=== PATIENT | male | born 1930 | race Caucasian/White ===

== ENCOUNTER 2016-04-14 04:59 | Inpatient (IN) | payer MEDICARE, OTHER ==
[~2016-04-14] VITALS: Ht 185.4 cm; Wt 85.9 kg
[2016-04-14 06:34] LABS: BASOPHILS 0.1 % (0.0-2.0); EOSINOPHILS 0.8 % (0-7); HEMATOCRIT 40.4 % (42.0-54.0); HEMOGLOBIN 14.5 g/dL (13.5-17.5); IMMATURE GRANULOCYTES 0.3 % (0-5); LYMPHOCYTES 29.5 % (15-50); MCH 33.9 pg (26.0-34.0); MCHC 35.9 g/dL (31.0-37.0); MCV 94.4 fL (80.0-100.0); MEAN PLATELET VOLUME 9.9 fL (7.4-10.4); MONOCYTES 14.7 % (2-11); NEUTROPHILS 54.6 % (40-80); PLATELET COUNT 113 10x3/uL (130-400); RBC 4.28 10x6/uL (4.20-6.10); RDW 13.6 % (11.5-14.5); WBC 7.2 10x3/uL (4.8-10.8)
[2016-04-14 06:46] LABS: ALBUMIN 3.4 g/dL (3.4-5.0); ALKALINE PHOSPHATASE 85 U/L (46-116); ALT (SGPT) 26 U/L (10-68); BILIRUBIN - TOTAL 1.21 mg/dL (0.2-1.3); CALC OSMOLALITY 277 mosm/kg (275-300); CALCIUM 8.7 mg/dL (8.5-10.1); CARBON DIOXIDE 30.6 mmol/L (21.0-32.0); CHLORIDE - SERUM 101 mmol/L (98-107); GLUCOSE 124 mg/dL (74-106); POTASSIUM - SERUM 3.1 mmol/L (3.5-5.1); PROTEIN - SERUM 7.1 g/dL (6.4-8.2); SODIUM 139 mmol/L (136-145); UREA NITROGEN 10 mg/dL (7-18); eGFR NON AFRICAN AMERICAN 75 mL/min (90-120)
[2016-04-14 06:56] LABS: AMYLASE - SERUM 40 U/L (25-115); LIPASE 72 U/L (73-393); MAGNESIUM - SERUM 2.4 mg/dL (1.8-2.4); PHOSPHOROUS 2.8 mg/dL (2.5-4.9); PRO BNP 2685 pg/mL (0-450); TROPONIN-I 0.034 ng/mL (0.000-0.060)
[2016-04-14] MEDS ORDERED: SINEMET 25-1001 EACH PO (08:18)
[2016-04-14] MEDS ORDERED: COREG6.25 MG PO (08:20)
[2016-04-14] MEDS ORDERED: SYNTHROID150 MCG PO (08:20)
[2016-04-14] MEDS ORDERED: PRINIVIL10 MG PO (08:21)
[2016-04-14] MEDS ORDERED: NORVASC10 MG PO (08:21)
[2016-04-14] MEDS ORDERED: PLAVIX75 MG PO (08:21)
[2016-04-14] MEDS ORDERED: CYTOTEC100 MCG PO (08:22)
[2016-04-14] MEDS ORDERED: CALCIUM 500 +1 EAC3 PO (08:23)
[2016-04-14] MEDS ORDERED: COLACE100 MG PO (08:23)
[2016-04-14] MEDS ORDERED: HEALTHYLAX17 GM PO (08:23)
[2016-04-14] MEDS ORDERED: EFFER-K 25 MEQ25 MEQ PO (08:24)
--- NOTE | 2016-04-14 08:41 | NUR ---
PT REC'D TO ROOM FROM ER, VIA WC, ACCOMPANIED BY HOSPITAL STAFF. ABLE TO AMBULATE WITH MINIMAL ASSISTANCE FROM WC TO BED. AAOX4. 2L O2 BEING DELIVERED VIA NC. CURRENT O2 SAT 94%. REGULAR HEART RATE AND RHYTHM. L CHEST PM. LUNG SOUNDS CLEAR AND EQUAL BILAT TO UPPER LOBES, FINE CRACKLES NOTED TO LOWER LOBES BILAT. BOWEL SOUNDS ACTIVE X4 QUADRANTS. NO COMPLAINTS OF PAIN. BED LOW, CALL LIGHT IN REACH, DENIES NEEDS, CPOC.
[2016-04-14 09:42] VITALS: BP 128/72; BMI 27.1
[2016-04-14 09:44] VITALS: Ht 185.4 cm; Wt 85.9 kg
--- NOTE | 2016-04-14 10:00 | NUR ---
PT RESTING IN BED WITH EYES CLOSED. NO SIGNS OF DISTRESS. RESP EVEN AND UNLABORED. BED LOW, CALL LIGHT IN REACH, CPOC.
[2016-04-14 12:42] VITALS: BP 138/73
--- NOTE | 2016-04-14 14:30 | NUR ---
ONE TIME DOSE OF LASIX ADMINISTERED AT THIS TIME. PROVIDED PT WITH CUP OF SOUP AND CRACKERS. OBTAINED PASSWORD. STATES HE WANTS IT TO JUST BE HIS NAME. BED LOW, CALL LIGHT IN REACH, DENIES NEEDS.
--- NOTE | 2016-04-14 15:39 | NUR ---
TELEMETRY APPLIED BY KAROLINA STEVE. RUNNING 66 PACED, CONTROLLED A-FIB, WITH PAC'S.
--- NOTE | 2016-04-14 16:47 | HP ---
PATIENT: LEONARDA WEATHERS MEDICAL RECORD: [id number] ACCOUNT: [id number] LOCATION:D.MS [facility] : 30 ADMISSION DATE: 04/14/16 HISTORY AND PHYSICAL EXAMINATION HISTORY OF PRESENT ILLNESS: Mr. Weathers is an 86-year-old white male that presents to the Emergency Room with a 1-2 day history of cough, fever, has actually not been feeling well for the last couple of weeks. Dr. Shamar Arroyo is his primary care physician. He saw him, he states that somewhere in the recent past, he was diagnosed with a blood infection, was in the hospital for a day, got some antibiotics and then went home. He just has not quite felt himself the last 2 weeks. He then developed these other problems in the last few days. He has been a smoker in the past, smoked 2-3 packs for about 20 years, quit in the early 70s. His chest x-ray shows a right middle lobe pneumonia. White count is normal. He is admitted at this time for further evaluation and therapy. His BNP was over 2000. PAST MEDICAL HISTORY: Significant for known COPD, coronary artery disease, hypertension, hypothyroidism, Parkinson disease and arrhythmia with pacemaker insertion. ALLERGIES OR INTOLERANCES: None known. HOME MEDICATIONS: Include Coreg 6.25 b.i.d., levothyroxine 150 mcg a day, lisinopril 10 mg once a day, clopidogrel 75 mg once a day, amlodipine 10 mg a day, Cytotec, docusate 100 mg 2 a day, calcium carbonate and vitamin D. FAMILY HISTORY: Noncontributory. SOCIAL HISTORY: The patient is . His in 2008. His daughter lives in [place]. There is a family friend that helps him with a lot of his care around the home. He lives here in the [facility]. REVIEW OF SYSTEMS: Significant for fatigue. No recent changes in weight, no chest pain. He has had some cough, congestion and low-grade temp. Appetite has been off. PHYSICAL EXAMINATION: HEENT: Head is normocephalic, sclerae nonicteric. HEART: Regular. LUNGS: Diffuse crackles on the right. ABDOMEN: Soft. EXTREMITIES: Lower extremities reveal some mild edema. NEUROLOGIC: Without any gross focal deficits. IMPRESSION: 1. Pneumonia. 2. Parkinson disease. 3. Hypertension. 4. Coronary artery disease, stable. 5. Hypothyroidism. PLAN: Admit, IV antibiotics, we will hold IV fluids for now, diurese times 1, pulmonary toilet, PT consult and DVT prophylaxis. See orders for rest of the plan. HISTORY AND PHYSICAL [id number] LEONARDA WEATHERS J TRANSINT:[id number] Voice Confirmation ID: [id number] DOCUMENT ID: [id number] KAMRAN BRYAN DO at 1647 CC: [id number] DICTATION DATE: 04/14/16 1117 SAFETY PHYSICIAN: 04/14/16 1146 ADM IN [facility] [address] [id number]
[2016-04-14 18:39] VITALS: BP 122/68
[2016-04-14 20:49] VITALS: BP 144/86
--- NOTE | 2016-04-14 23:19 | NUR ---
ASSESSED AT THE BEGINNING OF THE SHIFT. PT IS ALERT AND ORIENTED, ABLE TO VERBLIZE NEEDS. HE HAS O2 AT 2 LITERS AND AT THE START OF THE SHIFT WAS GIVEN A SANDWICH TRAY SINCE THE MD HAD NOT GIVEN HIM ANY DIET ORDERS. HE IS A LITTLE [place] BUT DOES WELL. RESPIRATIONS ARE LABORED WITH EXERTION. NO COMPLAINTS HAVE BEEN VOICED AND HE IS RESTING WELL. THE BED IS LOW, RAILS UP X'S 2, AND THE CALL LIGHT IS AT HAND.
[2016-04-15] VITALS: BP 136/77
[2016-04-15 04:00] VITALS: BP 153/91
[2016-04-15 06:08] LABS: BASOPHILS 0 % (0.0-2.0); EOSINOPHILS 0 % (0-7); HEMATOCRIT 38.9 % (42.0-54.0); HEMOGLOBIN 13.9 g/dL (13.5-17.5); IMMATURE GRANULOCYTES 0.2 % (0-5); LYMPHOCYTES 13.9 % (15-50); MCH 33.8 pg (26.0-34.0); MCHC 35.7 g/dL (31.0-37.0); MCV 94.6 fL (80.0-100.0); MEAN PLATELET VOLUME 10.1 fL (7.4-10.4); MONOCYTES 14.1 % (2-11); NEUTROPHILS 71.8 % (40-80); PLATELET COUNT 111 10x3/uL (130-400); RBC 4.11 10x6/uL (4.20-6.10); RDW 13.2 % (11.5-14.5)
[2016-04-15 06:32] LABS: ANION GAP 11.2 mmol/L (8-16); CARBON DIOXIDE 28.5 mmol/L (21.0-32.0); CREATININE - SERUM 1.2 mg/dL (0.6-1.3)
[2016-04-15 06:35] LABS: POTASSIUM - SERUM 3.7 mmol/L (3.5-5.1)
--- NOTE | 2016-04-15 07:15 | NUR ---
PT REC'D FROM [facility]. RESTING IN BED WATCHING TV. AAOX4. NO COMPLAINTS OF PAIN. BED LOW, CALL LIGHT IN REACH, DENIES NEEDS. CPOC.
[2016-04-15 08:07] VITALS: BP 159/101
--- NOTE | 2016-04-15 09:40 | NUR ---
PATIENT ALERT IN BED WATCHING TV. RESPIRATIONS EVEN AND UNLABORED. SIDE RAILS UP X2. BED IN LOW POSITION. CALL LIGHT IN REACH. DENIES NEEDS.
[2016-04-15 12:03] VITALS: BP 158/84
--- NOTE | 2016-04-15 14:55 | NUR ---
ALERTED BY DOWEL MACHINE OPERATOR THAT PT HAD A RUN OF VTACH. PT UP AT BEDSIDE GETTING DRESSED IN STREET CLOTHES. ASKING WHERE HIS DC PAPERS WERE TO SIGN. TOLD PT THAT HE WAS NOT GOING HOME TODAY. THAT THE DOCTOR HAD ALREADY TOLD HIM THAT THIS MORNING. PT THINKS HE HAS BEEN HERE SINCE LAST SATURDAY. EXPLAINED TO PT THAT HE HAS ONLY BEEN HERE FOR ONE DAY. AWARE OF YEAR, PLACE, SITUATION, AND SELF. CURRENT VS 154/87, RESP 22, HR 91, AND 94% O2 ON RA. ASSISTED PT BACK TO BED. DOOR LEFT OPEN AND BED ALARM ON.
--- NOTE | 2016-04-15 15:58 | NUR ---
PT SITTING UP IN CHAIR WATCHING TV, ALERT AND ORIENTED X PERSON, NO CURRENT COMPLAINTS, WILL CONTINUE TO MONITOR
[2016-04-15 16:07] VITALS: BP 143/89
--- NOTE | 2016-04-15 18:55 | NUR ---
PT WALKED BY DESK STATING HE WAS GOING HOME, I REDIRECTED PT BACK TO ROOM, HE'S CURRENTLY READING THE PAPER SITTING IN THE CHAIR, ERIC CHAIR ALARM PLACED, WILL CONTINUE TO MONITOR
--- NOTE | 2016-04-15 20:00 | NUR ---
AWAKE CONFUSED STATES GOING HOME. PT HAS SET OFF CHAIR ALARM SEVERAL TIMES. ATTEMPT TO RE-ORIENT PATIENT. SALINE LOCK PATENT LEFT FOREARM. SITE CLEAR. TELM. SHOWS UNCAF W/BBB WITH HR 114. O2 OFF AT PRESENT NO DISTRESS. PT WANDERS AROUND IN ROOM.
--- NOTE | 2016-04-15 21:30 | NUR ---
MEDS GIVEN PER APR. PT NOW IN BED. BED ALARM ON SR UP X2 CALL LIGHT WITHIN REACH.
[2016-04-15 21:43] VITALS: BP 187/96
--- NOTE | 2016-04-16 00:09 | NUR ---
EYES CLOSED RESPIRATIONS WITH EASE AND UNLABORED.
[2016-04-16 05:00] VITALS: BP 197/95
--- NOTE | 2016-04-16 06:55 | NUR ---
PATIENT STILL TRYING TO WANDER AROUND.
--- NOTE | 2016-04-16 07:15 | NUR ---
REPORT RECEIVED FROM WIPER BLENDER NURSE. CALL LIGHT IN REACH.
[2016-04-16 08:34] VITALS: BP 171/95
--- NOTE | 2016-04-16 08:36 | NUR ---
AM MEDS ADMINISTERED PER MINISTERIO ROSENBERG. CALL LIGHT IN REACH.
[2016-04-16 09:54] LABS: BASOPHILS 0.2 % (0.0-2.0); EOSINOPHILS 0.2 % (0-7); HEMATOCRIT 43.7 % (42.0-54.0); HEMOGLOBIN 15.5 g/dL (13.5-17.5); IMMATURE GRANULOCYTES 0.3 % (0-5); LYMPHOCYTES 12.7 % (15-50); MCH 33.9 pg (26.0-34.0); MCHC 35.5 g/dL (31.0-37.0); MCV 95.6 fL (80.0-100.0); MEAN PLATELET VOLUME 9.7 fL (7.4-10.4); MONOCYTES 11.9 % (2-11); NEUTROPHILS 74.7 % (40-80); PLATELET COUNT 112 10x3/uL (130-400); RBC 4.57 10x6/uL (4.20-6.10); RDW 13.5 % (11.5-14.5); WBC 6.4 10x3/uL (4.8-10.8)
[2016-04-16 10:12] LABS: ALBUMIN 3.2 g/dL (3.4-5.0); ANION GAP 10.9 mmol/L (8-16); BILIRUBIN - TOTAL 0.81 mg/dL (0.2-1.3); CALCIUM 8.7 mg/dL (8.5-10.1); CARBON DIOXIDE 30.4 mmol/L (21.0-32.0); CREATININE - SERUM 1.2 mg/dL (0.6-1.3); POTASSIUM - SERUM 3.3 mmol/L (3.5-5.1); PROTEIN - SERUM 7.2 g/dL (6.4-8.2)
--- NOTE | 2016-04-16 10:37 | NUR ---
PATIENT LYING IN BED DOING A BREATHING TX. IS COMFORTABLE. ADMINISTERED MEDS. INSTUCTED TO CALL IF NEEDED ANYTHING. VERBALIZED UNDERSTANDING. BED LOW, LOCKED, CALL LIGHT IN REACH, BED ALARM IS ON.
[2016-04-16 11:23] VITALS: BP 151/76
--- NOTE | 2016-04-16 12:55 | NUR ---
IN BED EATING LUNCH AT THIS TIME. CALL LIGHT IN REACH.
--- NOTE | 2016-04-16 13:03 | NUR ---
Patient Name: LEONARDA WEATHERS Admission Status: ER Accout number: [id number] Admission Date: 04-14-2016 : 1930 Admission Diagnosis: Attending: MYNOR Current LOS: 2 Anticipated DC Date: 04-17-2016 Planned Disposition: Home Primary Insurance: MEDICARE A & B Discharge Planning Comments: CM MET WITH PATIENT REGARDING D/C NEEDS AND PLANS. PATIENT STATED HE IS INDEPENDENT WITH HIS CARE AND HAS NO DME AT HOME. PATIENT HAS 3 STEPS W/RAILS TO ENTER HOME AND NO STAIRS ONCE INSIDE. PATIENTS PCP IS DR. WAGGONER AND PHARMACY IS [facility]. PATIENT HAS NOT HAD HOME HEALTH AND STATED HE DID NOT NEED IT AND DENIED ANY OTHER NEEDS. CM WILL CONTINUE TO FOLLOW PATIENT WITH D/C NEEDS AND PLANS. PCP DR. WAGGONER [facility]- [phone] GARRETT PEREZ (FRIEND) [phone] Transport Conductor: Soledad Faust Is the patient Alert and Oriented? Yes 0 * How many steps to enter\exit or inside your home? 3 w/rails 0 * PCP DR. WAGGONER 0 * Pharmacy [facility] 0 * Preadmission Environment Home Alone 0 * ADLs Independent 0 * Equipment None 0 * List name and contact numbers for known caregivers / representatives who currently or will assist patient after discharge: GARRETT PEREZ (FRIEND) [phone] 0 * Community resources currently utilized None 0 * Additional services required to return to the preadmission environment? Yes 0 * Can the patient safely return to the preadmission environment? Yes 0 * Has this patient been hospitalized within the prior 30 days at any hospital? No 0 Grand Total: 0
--- NOTE | 2016-04-16 13:15 | NUR ---
WALKING OUT IN HALLS.PT TOOK BACK TO ROOM.BED ALARM ON AND FUNCTIONING
--- NOTE | 2016-04-16 13:46 | NUR ---
PATIENT LYING IN BED COMFORTABLE. IS CONFUSED ON WHERE HE IS. IS RESTING. BED ALARM IS ON. BED LOW, LOCKED, CALL LIGHT IN REACH. INTRUCTED TO CALL IF NEEDED ANYTHING. PATIENT VERBALIZED UNDERSTANDING.
--- NOTE | 2016-04-16 14:45 | NUR ---
CALL EVS TO GET AN SCD MACHINE PLACED ON BED. LADY STATED THAT SHE WOULD HAVE TO LOOK FOR ONE. THE ORDERS ARE IN FOR SCDS TO BE PLACED ON PATIENT.
--- NOTE | 2016-04-16 14:50 | NUR ---
NUTRITION MONITORING & EVAL CHART REVIEWED. PT CURRENTLY SLEEPING. TOLERATING REG DIET, 100% INTAKE. RD FOLLOWING
--- NOTE | 2016-04-16 14:51 | NUR ---
PATIENT LYING IN BED RESTING. INSTRUCTED HIM TO CALL FOR ASSISTANCE IF NEEDED ANYTHING. VERBALIZED UNDERSTANDING. BED LOW, LOCKED, CALL LIGHT IN REACH, BED ALARM ON.
[2016-04-16 15:18] VITALS: BP 147/87
--- NOTE | 2016-04-16 15:35 | NUR ---
PATIENT LYING IN BED RESTING. COLLECTED URINE SAMPLE FROM HIM TO BE SENT TO LAB FOR CONFUSION. HELPED HIM TO THE BATHROOM AND BACK TO BED. BED LOW, LOCKED, CALL LIGHT IN REACH, BED ALARM ON.
--- NOTE | 2016-04-16 15:49 | NUR ---
ASKED KARUNA MADERA IF WE COULD COLLECT A URINE SAMPLE DUE TO CONFUSION TODAY. COLLECTED URINE AND SENT TO THE LAB. PATIENT WAS ALSO PLACED ON ELETROLYTE PROTOCAL TODAY WELL.
[2016-04-16 16:24] LABS: APPEARANCE CLEAR (CLEAR); COLOR YELLOW (YELLOW)
[2016-04-16 16:25] LABS: BACTERIA FEW /hpf (NONE SEEN); BILIRUBIN NEGATIVE (NEGATIVE); EPITHELIAL CELLS 0-5 /hpf (0-5); GLUCOSE NEGATIVE (NEGATIVE); KETONE NEGATIVE (NEGATIVE); LEUKOCYTE ESTERASE NEGATIVE (NEGATIVE); NITRITE NEGATIVE (NEGATIVE); PROTEIN TRACE mg/dL (NEGATIVE); RED CELLS - URINE 0-5 /hpf (0-5); UROBILINOGEN NORMAL (NORMAL); WHITE CELLS - URINE 0-5 /hpf (0-5)
--- NOTE | 2016-04-16 16:59 | NUR ---
PATIENT SITTING UP IN BED EATING DINNER. ADMINISTERED K+ ORDERED. INSTUCTED TO CALL IF NEEDED ANYTHING. VERBALIZED UNDERSTANDING. BED LOCKED, LOW, CALL LIGHT IN REACH, BED ALARM ON.
--- NOTE | 2016-04-16 18:29 | NUR ---
NO CHANGES IN INITIAL ASSESSMENT. CALL LIGHT IN REACH. STILL WAITING ON SCD MACHINE. BED ALARM ON. CALL LIGHT IN REACH. WILL CONTINUE WITH PLAN OF CARE.
--- NOTE | 2016-04-16 18:38 | NUR ---
SPOKE WITH FRONT OFFICE SUPERVISOR ABOUT NEEDING SCD MACHINE SINCE [employer] DID NOT BRING ONE UP.
[2016-04-16 19:00] VITALS: BP 170/101
--- NOTE | 2016-04-16 19:35 | NUR ---
RECIEVED SHIFT REPORT. PT IS LYING IN BED. ALERT AND ORIENTED AND ABLE TO VERBALIZE NEEDS. IV IS PATENT AND SALINE LOC AT THIS TIME. PT IS AMBULATORY BUT WAS INSTRUCTED TO CALL FOR ASSISTANCE WHEN NEEDED. PT DENIES ANY PAIN AT THIS TIME. NO NEEDS ARE VERBALIZED AT THIS TIME. WILL CONTINUE TO MONITOR. SIDE RAILS ARE UP 2. BED IS IN LOWEST POSITION. BED ALARM IS ON FOR SAFETY. CALL LIGHT IS WITHIN REACH.
--- NOTE | 2016-04-16 20:14 | NUR ---
SHIFT ASSESSMENT COMPLETED. NIGHT MEDS GIVEN WITH NO PROBLEMS. NO NEEDS ARE VOICED. WILL MONITOR. SIE RAILS X 2. BED LOW. CALL LIGHT IN REACH. BED ALARM ON.
[2016-04-17] VITALS: BP 165/83
[2016-04-17 04:00] VITALS: BP 184/106
[2016-04-17 05:15] LABS: BASOPHILS 0.2 % (0.0-2.0); EOSINOPHILS 0.4 % (0-7); HEMATOCRIT 42.2 % (42.0-54.0); HEMOGLOBIN 14.7 g/dL (13.5-17.5); IMMATURE GRANULOCYTES 0.2 % (0-5); LYMPHOCYTES 29.5 % (15-50); MCH 33.3 pg (26.0-34.0); MCHC 34.8 g/dL (31.0-37.0); MCV 95.5 fL (80.0-100.0); MEAN PLATELET VOLUME 10.4 fL (7.4-10.4); MONOCYTES 19.2 % (2-11); NEUTROPHILS 50.5 % (40-80); PLATELET COUNT 114 10x3/uL (130-400); RBC 4.42 10x6/uL (4.20-6.10); RDW 13.2 % (11.5-14.5)
[2016-04-17 05:21] LABS: WBC 4.6 10x3/uL (4.8-10.8)
[2016-04-17 05:50] LABS: ALBUMIN 2.9 g/dL (3.4-5.0); BILIRUBIN - TOTAL 0.99 mg/dL (0.2-1.3); CALCIUM 8.5 mg/dL (8.5-10.1); CREATININE - SERUM 1.2 mg/dL (0.6-1.3); PROTEIN - SERUM 6.6 g/dL (6.4-8.2)
--- NOTE | 2016-04-17 07:00 | NUR ---
PATIENT IS AMBULATING IN THE ROOM, PATIENT TURNED OFF HIS BED ALARM. THEN SAT DOWN. I ASKED PATIENT "WHAT IS YOUR NAME AND BIRTHDAY?" PATIENT ANSWERED APPROPRIATLEY. I STATED "WHAT YEAR IS IT?" PATIENT STATED "2016." I STATED "DO YOU KNOW WHERE YOU ARE RIGHT NOW?" PATIENT STATED "NO. I HAVE NO IDEA WHERE I AM. I WAS IN THE HOSPITAL FOR PNEUMONIA, THEN I GOT DISCHARGED AND I DO NOT HAVE A CLUE WHAT HAPPENED OR WHERE I AM. I DO NOT HAVE A HOME ANYMORE. ALMOST ALL MY STUFF IS GONE." I REORIENTED PATIENT. ENCOURAGED PATIENT TO SIT IN THE CHAIR. PUT CHAIR ALARM ON THE CHAIR. EXPLAINED TO PATIENT THAT HE HAS BEEN CONFUSED AND THAT IS WHY THE CHAIR ALARM IS ON. PATIENT VERBALIZED UNDERSTANDING.
--- NOTE | 2016-04-17 07:51 | NUR ---
IV IN LEFT WRIST NOT FLUSHING EASILY. D/C WITH CATH INTACT. STARTED 20G IV TO LEFT FOREARM X'S 1 ATTEMPT.
[2016-04-17 07:53] VITALS: BP 158/90
--- NOTE | 2016-04-17 10:00 | NUR ---
PATIENT IS ORIENTED X'S 4. PATIENT STATED "I AM NOT CONFUSED ANYMORE I REMEMBER EVERYTHING NOW." PATIENT ANSWERED ALL ORIENTATION QUESTIONS APPROPRIATELY. PATIENT CALLED ME BY NAME AND STATED HE KNEW I WAS HIS NURSE.
[2016-04-17 12:04] VITALS: BP 149/88
[2016-04-17 15:32] VITALS: BP 133/94
[2016-04-17 19:00] VITALS: BP 178/91
--- NOTE | 2016-04-17 19:20 | NUR ---
RECIEVED SHIFT REPORT. PT IS LYING IN BED. ALERT AND ORIENTED AND ABLE TO VERBALIZE NEEDS. IV IS PATENT AND SALINE LOC AT THIS TIME. PT DENIES ANY PAIN AT THIS TIME. PT IS AMBULATORY BUT WAS INSTRUCTED TO CALL FOR ANY ASSISTANCE NEEDED. NO NEEDS ARE VERBALIZED AT THIS TIME. WILL CONTINUE TO MONITOR. SIDE RAILS ARE UP X 2. BED IS IN LOWEST POSITION. CALL LIGHT IS WITHIN REACH.
--- NOTE | 2016-04-17 20:54 | NUR ---
SHIFT ASSESSMENT COMPLETED. NIGHT MEDS GIVEN WITH NO PROBLEMS. NO NEEDS ARE VOICED. WILL MONITOR. SIDE RAILS X 2. BED LOW. CALL LIGHT IN REACH.
[2016-04-18 04:00] VITALS: BP 182/118
[2016-04-18 08:15] VITALS: BP 187/101
[2016-04-18 10:48] LABS: BASOPHILS 0.2 % (0.0-2.0); EOSINOPHILS 0.9 % (0-7); HEMOGLOBIN 16.1 g/dL (13.5-17.5); IMMATURE GRANULOCYTES 0.2 % (0-5); LYMPHOCYTES 25.5 % (15-50); MCH 33.5 pg (26.0-34.0); MCHC 35.8 g/dL (31.0-37.0); MCV 93.8 fL (80.0-100.0); MEAN PLATELET VOLUME 10.2 fL (7.4-10.4); MONOCYTES 11.5 % (2-11); NEUTROPHILS 61.7 % (40-80); PLATELET COUNT 131 10x3/uL (130-400); RDW 13.1 % (11.5-14.5); WBC 5.7 10x3/uL (4.8-10.8)
[2016-04-18 11:09] LABS: ALBUMIN 3.3 g/dL (3.4-5.0); ANION GAP 10.9 mmol/L (8-16); BILIRUBIN - TOTAL 1.16 mg/dL (0.2-1.3); CALCIUM 9.3 mg/dL (8.5-10.1); CARBON DIOXIDE 28.8 mmol/L (21.0-32.0); CREATININE - SERUM 1.4 mg/dL (0.6-1.3); POTASSIUM - SERUM 3.7 mmol/L (3.5-5.1); PROTEIN - SERUM 7.5 g/dL (6.4-8.2)
[2016-04-18 12:26] VITALS: BP 141/79
[2016-04-18 15:40] VITALS: BP 167/92
[2016-04-18 19:00] VITALS: BP 134/98
--- NOTE | 2016-04-18 19:40 | NUR ---
RECIEVED SHIFT REPORT. PT IS LYING IN BED. ALERT AND ORIENTED BUT PATIENT DOES HAVE INTERMITTENT CONFUSION. IV IS PATENT AND SALINE LOC AT THIS TIME. PT IS AMBULATORY BUT WAS INSTRUCTED TO CALL FOR ANY ASSISTANCE NEEDED. PT DENIES ANY PAIN AT THIS TIME. NO NEEDS ARE VERBALIZED AT THIS TIME. ERIC MAT IN CHAIR AND BED ALARM REMAINS ON, HOWEVER PT GETS UP AND TURNS THEM OFF. WILL CONTINUE TO MONITOR. SIDE RAILS ARE UP X 2. BED IS LOW. CALL LIGHT IS WITHIN REACH.
--- NOTE | 2016-04-18 20:41 | NUR ---
PT REDIRECTED TO ROOM AT THIS TIME. SHIFT ASSESSMENT COMPLETED. NIGHT MEDS GIVEN WITH NO PROBLEMS. NO NEEDS ARE VOICED. WILL MONITOR. AGAIN ERIC MAT AND BED ALARM ON BUT PT CONTINUES TO TURN THEM OFF AND GET UP. WILL MONITOR. SIDE RAILS X 2. BED LOW. CALL LIGHT IN REACH.
[2016-04-19] VITALS: BP 123/87
[2016-04-19 04:00] VITALS: BP 156/88
[2016-04-19 05:38] LABS: BASOPHILS 0.2 % (0.0-2.0); EOSINOPHILS 0.5 % (0-7); HEMATOCRIT 42.4 % (42.0-54.0); HEMOGLOBIN 15.3 g/dL (13.5-17.5); IMMATURE GRANULOCYTES 0.3 % (0-5); LYMPHOCYTES 29.9 % (15-50); MCH 33.8 pg (26.0-34.0); MCHC 36.1 g/dL (31.0-37.0); MCV 93.6 fL (80.0-100.0); MONOCYTES 9.7 % (2-11); NEUTROPHILS 59.4 % (40-80); PLATELET COUNT 132 10x3/uL (130-400); RBC 4.53 10x6/uL (4.20-6.10); RDW 12.9 % (11.5-14.5); WBC 6.2 10x3/uL (4.8-10.8)
[2016-04-19 06:05] LABS: ALBUMIN 3.2 g/dL (3.4-5.0); BILIRUBIN - TOTAL 1.14 mg/dL (0.2-1.3); CALCIUM 8.9 mg/dL (8.5-10.1); CARBON DIOXIDE 26.4 mmol/L (21.0-32.0); CREATININE - SERUM 1.4 mg/dL (0.6-1.3); POTASSIUM - SERUM 3.4 mmol/L (3.5-5.1); PROTEIN - SERUM 6.9 g/dL (6.4-8.2)
--- NOTE | 2016-04-19 08:00 | NUR ---
AWAKE AND ALERT. ORIENTED TO SELF TIME AND PLACE BUT NOT SITUATION. STAFF ATTEMPTED TO REORIENT. WILL MONITOR. LUNGS ARE CLEAR BILATERALLY BUT DIMINISHED THROUGHOUT. DENIES COUGH. SKIN IS INTACT WITIHOUT REDNESS. SL TO LEFT WRIST AREA PATENT WITHOUT REDNESS AT INSERTION SITE. DENIES NEEDS. BREAKFAST SERVED IN ROOM. FEEDS SELF.
[2016-04-19 08:02] VITALS: BP 164/88
--- NOTE | 2016-04-19 09:45 | NUR ---
WAS DOWNSTAIRS PER SELF. ATTEMPTS TO ORIENT TO SITUATION UNSUCCESSFUL
--- NOTE | 2016-04-19 11:05 | NUR ---
SITTING UP IN CHAIR AT BEDSIDE. DAUGHTER AT BEDSIDE.
[2016-04-19] MEDS ORDERED: CORDARONE200 MG PO (11:47)
[2016-04-19] MEDS ORDERED: IPRAT-ALBUT 0.5-3 ML UPD (11:47)
[2016-04-19] MEDS ORDERED: LEVAQUIN750 MG PO (11:48)
[2016-04-19] MEDS ORDERED: FLORAJEN3 CAPS460 MG PO (11:48)
--- NOTE | 2016-04-19 12:09 | NUR ---
04/19/2016 12:00 DCP: Discharge Planning CM met with patient & daughter, Ching Awad late yesterday afternoon. Ching is visiting from [place], [place]. She is very concerned with patients mental status changes. Discussed post acute discharge options including inpatient chau psych, assisted living options, SNF & LTC facilities, & home health agencies. They are agreeable to inpatient chau psych evaluation. Consult was ordered yesterday and completed this am. Patient has been accepted & will transfer this afternoon. Ching Delmi [phone]
--- NOTE | 2016-04-19 15:55 | NUR ---
DISCHARGED TO [facility] VIA . DAUGHTER IN ROOM. REPORT GIVEN TO ADAMARIS GREEN IN [facility].
--- NOTE | 2016-04-20 08:47 | EC ---
PATIENT:LEONARDA WEATHERS DATE OF SERVICE: 04/14/16 SEX: M MEDICAL RECORD: [id number] DATE OF : 30 LOCATION:D.MS [facility] AGE OF PATIENT: 86 ADMISSION DATE: 04/14/16 REFERRING PHYSICIAN: INTERPRETING PHYSICIAN: NEWTON FOWLER MD ECHOCARDIOGRAM REPORT ECHO CHARGES 4 ECHO COMPLETE CLINICAL DIAGNOSIS: A-FIB/V-TACH ECHOCARDIOGRAPHIC MEASUREMENTS (adult normal given) AC root (d.<3.7cm) 3.4 LV Septum d (<1.2 cm> 1.8 Valve Excursion 1.1 LV Septum (systole) 2.4 Left Atria (s.<4.0cm> 4.9 LVPW d(<1.2cm) 1.5 RV (d.<2.3cm) 3.8 LVPW (sytole) 2.1 LV diastole(<5.6CM) 6.6 MV E-F(>70mm/sec) LV systole 4.4 LVOT Diameter 1.9 MV exc.(>10mm) Est.ejection fraction (50-75%) Pericardial Effusion N DOPPLER: LVIT A E 104 LA RVSP 80.0 LVOT 100 AOP1/2T Asc. Ao 267 RVOT 63.0 RA PA 86.0 AV Gradient Peak 29.0 AV Mean 14.4 AV Area 0.9 MV Gradient Peak 6.7 MV Mean 2.0 MV Area COMMENTS: Terrazzo Roller: Ramo SOLISDSOE Hr Business Partner:1 Dr. Fowler TAPE# PACS DATE OF SERVICE: 04/16/2016 Echocardiogram FINDINGS: 1. Left ventricular chamber size is mildly dilated. Left ventricular systolic function is mildly depressed. Overall ejection fraction 40%. 2. Left atrium is enlarged at 4.9 cm. Right atrium and right ventricular chamber sizes are as well moderately dilated. 3. Valvular structures: Aortic valve demonstrates arcx-yw-vyrflqvh calcific ECHOCARDIOGRAM REPORT [id number] LEONARDA WEATHERS aortic stenosis. Valve area calculates to 0.9 cm-squared. There is a gradient of 29 mm across the valve. The remaining valvular structures have normal structure and motion. 4. Doppler interrogation elsewise reveals fevthkgi-je-qydpyo mitral regurgitation, azpcfesw-eg-yqqdrd tricuspid regurgitation, no other valvular insufficiency or stenosis and pulmonary systolic pressure is significantly elevated estimated at 80 mmHg. 5. No evidence of pericardial effusion or left ventricular thrombus. TRANSINT:[id number] Voice Confirmation ID: [id number] DOCUMENT ID: [id number] NEWTON FOWLER MD at 0847 CC: [id number] DICTATION DATE: 04/16/16 1212 SHANK SORTER: 04/16/16 1247 DIS IN 04/19/16 [address] [id number] [id number]
[2016-04-20 10:19] LABS: FOLATE (FOLIC ACID) - SERUM 13.1 ng/mL (>3.0)
== END 2016-04-19 15:56 | DRG 190 ==
LOC: D.ER 04:59 → D.MS 07:10
PROVIDERS: Family Medicine; Surgery; ADMIT Family Medicine
DX: J44.0 Chronic obstructive pulmonary disease with (acute) lower respiratory infection (principal); J18.1 Lobar pneumonia, unspecified organism; I49.01 Ventricular fibrillation; E87.6 Hypokalemia; J44.9 Chronic obstructive pulmonary disease, unspecified; I25.10 Atherosclerotic heart disease of native coronary artery without angina pectoris; G20 Parkinson's disease; R41.0 Disorientation, unspecified; I10 Essential (primary) hypertension; E03.9 Hypothyroidism, unspecified; I48.91 Unspecified atrial fibrillation; Z87.891 Personal history of nicotine dependence

== ENCOUNTER 2016-04-19 16:04 | Inpatient (IN) | payer MEDICARE, OTHER ==
[~2016-04-19] VITALS: Ht 180.3 cm; Wt 86.7 kg
--- NOTE | 2016-04-19 16:00 | NUR ---
Patient brought to Skilled Nursing via w/c with staff KAROLINA Rowland from [facility]. and his daughter "LI", assessment completed. Patient does have toenail fungus and his bilateral lower extremities are edematous with darkened skin, he says he has had vein repair to them. He has a pacemaker, he has multiple moles to his back, reddened to his upper inside of coccyx area. Scars from shoulder repair bilaterally. Patient presents pleasant, he is oriented x3, he does get some of his words confused for example I asked him how tall he was and he said he was 11 ft 5 inch, but he is 5 ft 11 inch. He says he does get agitated at times when he realizes he is confused. He also believes he went home before he was admitted here, but dtr says "No, he never went home, he's been on medical floor" Patient is pleasant, but confused.
[~2016-04-19 16:04] MED LIST: CALCIUM 500 +1 EAC3 PO; COLACE100 MG PO; CORDARONE200 MG PO; COREG6.25 MG PO; CYTOTEC100 MCG PO; EFFER-K 25 MEQ25 MEQ PO; FLORAJEN3 CAPS460 MG PO; HEALTHYLAX17 GM PO; IPRAT-ALBUT 0.5-3 ML UPD; LEVAQUIN750 MG PO; NORVASC10 MG PO; PLAVIX75 MG PO; PRINIVIL10 MG PO; SINEMET 25-1001 EACH PO; SYNTHROID150 MCG PO
[2016-04-19 16:43] VITALS: BP 146/82; BMI 23.9
[2016-04-19 18:21] LABS: BASOPHILS 0.3 % (0.0-2.0); EOSINOPHILS 0.6 % (0-7); HEMATOCRIT 42.2 % (42.0-54.0); HEMOGLOBIN 15.4 g/dL (13.5-17.5); IMMATURE GRANULOCYTES 0.3 % (0-5); LYMPHOCYTES 25.1 % (15-50); MCH 34.3 pg (26.0-34.0); MCHC 36.5 g/dL (31.0-37.0); MEAN PLATELET VOLUME 9.9 fL (7.4-10.4); MONOCYTES 9.8 % (2-11); NEUTROPHILS 63.9 % (40-80); PLATELET COUNT 129 10x3/uL (130-400); RBC 4.49 10x6/uL (4.20-6.10); RDW 13.1 % (11.5-14.5); WBC 6.3 10x3/uL (4.8-10.8)
[2016-04-19 18:53] LABS: ALBUMIN 3.3 g/dL (3.4-5.0); ANION GAP 11.3 mmol/L (8-16); BILIRUBIN - TOTAL 0.9 mg/dL (0.2-1.3); CALCIUM 8.9 mg/dL (8.5-10.1); CARBON DIOXIDE 27.5 mmol/L (21.0-32.0); CHOL - HDL RATIO 4.9 ratio (2.3-4.9); CREATININE - SERUM 1.7 mg/dL (0.6-1.3); LDL-HDL RATIO 3.3 ratio (1.5-3.5); POTASSIUM - SERUM 3.8 mmol/L (3.5-5.1); PROTEIN - SERUM 7.2 g/dL (6.4-8.2); THYROID STIMULATING HORMONE 3.59 uIU/mL (0.36-3.74)
[2016-04-19 19:00] VITALS: BP 146/80
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
[2016-04-20 08:00] VITALS: BP 160/87
[2016-04-20 14:33] VITALS: Ht 180.3 cm; Wt 86.7 kg
--- NOTE | 2016-04-20 16:46 | NUR ---
(B)RECEIVED PATIENT SITTING IN A CHAIR AT THE NURSES STATION. ORIENTED TO SELF AND RELATES HE IS AT "[facility]." POOR INSIGHT INTO THE REASON FOR HOSPITALIZATION. SOCIALLY WITHDRAWN. MINIMAL INTERACTION WHEN APPROACHED BY SOMEONE ELSE. APPEARS AGITATED AND RESTLESS WHEN ATTEMPTS ARE MADE TO TALK WITH HIM. FEELS THOUGH HIS FAMILY PUT HIM HERE. DISCOLORATION TO LOWER EXTRMITIES. (I)ADMINISTER MEDS AND MONITOR COMPLIANCE. REORIENT NEEDED. (R)NON COMPLIANT WITH MEDICATIONS. POOR REORIENTATION. APPEARS PASSIVE AND DISINTRESTED IN RECEIVING INFORMATION. REMAINS SOCIALLY WITHDRAWN. (P)CONTINUE POC AND MAINTAIN FALL PRECAUTIONS.
[2016-04-20 19:30] VITALS: BP 186/84
--- NOTE | 2016-04-21 00:31 | NUR ---
PATIENT ASLEEP IN DAYROOM. ORIENTED TO PERSON, PLACE, TIME AND SITUATION, NON-COMBATIVE, NON-AGRESSIVE, COOPERATED WITH MEDICATION. CONTINUE PLAN OF CARE, CONTINUE TO MONITOR.
[2016-04-21 06:13] LABS: RAPID PLASMA REAGIN Non Reactive (Non Reactive)
--- NOTE | 2016-04-21 11:30 | NUR ---
SPOKE WITH PATIENT'S DAUGHTER. UPDATE ON CONDITION GIVEN AND QUESTIONS ANSWERED. VERBALIZED UNDERSTANDING. RELATES WILL PROBABLY BE HERE TO VISIT.
--- NOTE | 2016-04-21 16:09 | NUR ---
RECEIVED THIS AM IN BED.AMBULATORY.ORIENTED ORIENTED X 3.HAS POOR INSITE TO WHY HE IS HERE.COMPLIANT WITH MEDS TODAY.SITS QUIETLY AND DOES NOT SOCIALIZE WITH PEERSNO SIGNS OF AGGRESSION OBSERVERED.WILL CONTINUE WITH PLAN OF CARE,MONITOR FOR CHANGES AND SAFETY.
[2016-04-21 19:30] VITALS: BP 131/76
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
[2016-04-22 10:51] VITALS: BP 170/100
--- NOTE | 2016-04-22 15:23 | NUR ---
AMBULATORY .ORIENTED X 3 BUT HAS POOR INSITE INTO WHY HE IS HERE.NO SIGNS OF AGGRESSION OR EXIT SEEKING.VISITNG WITH PEERS.COMPLIANT WITH MEDS.COOPERATIVE WITH STAFF.WILL CONTINUE WITH PLAN OF CARE,MONITOR FOR CHANGES AND SAFETY.
--- NOTE | 2016-04-23 00:10 | NUR ---
PATIENT WAS WALKING AROUND DAY ROOM AND DINING AREA. ORIENTED TO SELF, AND SITUATION. WHEN ASKED WHY SHE WAS HERE, SHE SAID SHE CAME AFTER SOME TESTING IN [place]. PATIENT DENIES SUICIDAL IDEATION AND THOUGHTS OF SELF HARM. PATIENT WILL FORGET QUESTIONS YOU JUST ASKED AND DAZE OFF. PATIENT REORIENTED. CONTINUE TO MONITOR, CONTINUE PLAN OF CARE.
--- NOTE | 2016-04-23 00:19 | NUR ---
PATIENT HAS COMPLAINT OF CONSTIPATION, SAYS AT HOME HE DRINKS PRUNE JUICE, AND TAKE OVER THE COUNTER REMEDIES DAILY. PATIENT GIVEN PRN COLACE. CONTINUE TO MONITOR.
--- NOTE | 2016-04-23 04:13 | NUR ---
PATIENT ORIENTED TO SELF, TIME, PLACE AND SITUATION. PATIENT PLEASANT AND AMIABLE, DENIES HALLUCINATIONS. NON-AGRESSIVE. PATIENT COMPLIANT WITH MEDICATION. CONTINUE TO MONITOR, CONTINUE PLAN OF CARE.
[2016-04-23 08:13] VITALS: BP 147/77
[2016-04-23 09:09] LABS: VITAMIN D 25 HYDROXY 22.9 ng/mL (30.0-100.0)
--- NOTE | 2016-04-23 15:38 | NUR ---
RECEIVED THIS AM AMBULATORY IN HALLWAY AT NURSES STATION.IS ORIENTED.COMPLIANT WITH MEDS AND STAFF.NO EXIT SEEKING OR AGGRESSION OBSERVED.WILL CONTINUE WITH PLAN OF CARE,MONITOR FOR CHANGES AND SAFETY.
--- NOTE | 2016-04-23 20:32 | NUR ---
RECEIVED IN DAYROOM. SETTING IN RECLINER READING. NOT SOCIALIZING. CALM AND COOPERATIVE WITH CARE AND ASSESSMENTS. NO SIGNS OF AGGRESSION. ENCOURAGE TO EXPRESS NEEDS. CONTINUES TO SET QUIETLY READING .C ONTINUE PLAN OF CARE
--- NOTE | 2016-04-23 21:41 | PN ---
PATIENT:LEOANRDA WEATHERS MEDICAL RECORD: [id number] LOCATION:[facility] ADMISSION DATE: 04/19/16 PROGRESS NOTE DATE OF SERVICE: 04/23/2016 SUBJECTIVE: No new complaint. OBJECTIVE: Staff report the patient is much calmer and is sleeping considerably better. The patient's daughter is looking into an assisted living and/or usp placement. CT scan that was supposed to have been ordered earlier will be done tomorrow or this afternoon. On exam, the patient's mood is euthymic. Affect is bland. Speech is rather terse. Content of thought is negative for overt psychosis. Sensorium is unchanged. ASSESSMENT: No change in diagnosis. PLAN: 1. Continue current medications. 2. Continue supportive therapy. TRANSINT:[id number] Voice Confirmation ID: [id number] DOCUMENT ID: [id number] ECTOR MCNAIR III, MD at 2141 CC: [id number] DICTATION DATE: 04/23/16 1204 ELASTIC ASSEMBLER: 04/23/16 1535 ADM IN [id number] [place] [address]
[2016-04-23 21:45] VITALS: BP 123/67
[2016-04-24 09:21] VITALS: BP 157/93
--- NOTE | 2016-04-24 10:49 | NUR ---
Nutrition Follow Up: Chart reviewed. Pt is eating 97% meal avg on a Regular diet. Wt gain of 20# since admit - (scales?). +BM 04/23/16. Meds noted. No new labs to assess. Pt with excellent po intake. Rec continue current diet. Will continue to provide selective menus and honor food preferences. RD following.
--- NOTE | 2016-04-24 16:18 | NUR ---
(B)RECEIVED PATIENT LAYING IN HIS BED. EASILY AROUSED AND VS OBTAINED. ORIENTED X3. POOR INSIGHT INTO THE REASON FOR HOSPITALIZATION RELATING "SAID I WAS SEEING THINGS THAT WASN'T THERE." RELATES HIS DAUGHTER IS TAKING HIM TO [place] WITH HER WHEN HE IS DISCHARGED. CALM AND COOPERATIVE. (I)ADMINISTER MEDS AND MONITOR COMPLIANCE. ENCOURAGE PARTICIPATION IN GROUP ACTIVITIES. (R)MED OCMPLIANT. PATIENT IS COOPERATIVE WITH STAFF REQUEST HOWEVER MOSTLY SITS ALONE WATCHING TV OR SITS WITH EYES CLOSED. MINIMAL PARTICIPATION IN ACTIVITIES. (P)CONTINUE POC AND MAINTAIN FALL PECAUTIONS.
[2016-04-24 19:39] VITALS: BP 125/67
--- NOTE | 2016-04-24 20:28 | NUR ---
RECEIVED IN DAYROOM. SETTING IN DAYROOM. WATCHING TV. NOT SOCIALIZING WITH PEERS.. CALM AND COOPERATIVE WITH CARE AND ASSESSMENTS. NO SIGNS OF AGGRESSION. ALERT AND ORIENTED. ENCOURAGE TO EXPRESS NEEDS. CONTINUES TO SET IN RECLINER WATCHING TV. CONTINUE PLAN OF CARE
[2016-04-25 08:00] VITALS: BP 143/71
--- NOTE | 2016-04-25 10:59 | PN ---
PATIENT:LEONARDA WEATHERS MEDICAL RECORD: [id number] LOCATION:[facility] ADMISSION DATE: 04/19/16 PROGRESS NOTE DATE OF SERVICE: 04/24/2016 SUBJECTIVE: No new complaint. OBJECTIVE: CT scan of the brain from yesterday showed only age-related white matter changes. The patient's behavior has continued to be stable. He is tolerating medications well and his daughter is working on placement options. On exam, mood is euthymic. Affect bland. Speech is terse. Content of thought focuses primarily on somatic concerns. Sensorium is unchanged. ASSESSMENT: No change in diagnosis. PLAN: 1. Maintain current medication. 2. Continue supportive therapy. TRANSINT:[id number] Voice Confirmation ID: [id number] DOCUMENT ID: [id number] ECTOR MCNAIR III, MD at 1059 CC: [id number] DICTATION DATE: 04/24/16 1224 CLINICAL PROJECT COORDINATOR: 04/24/16 2222 ADM IN [id number] [place] [address]
[2016-04-25] MEDS ORDERED: RISPERDAL1 MG PO (11:51)
--- NOTE | 2016-04-25 14:39 | NUR ---
RECEIVED THIS AM SITTING IN CHAIR IN HALLWAY AT NURSES STATION.ORIENTED.NO EXIT SEEKING OR AGGRESSION OBSERVED.AMBULATORY.COMPLIANT WITH MEDS.VISITS WITH PEERS.WILL CONTINUE WITH PLAN OF CARE,MONITOR FOR CHANGES AND SAFETY.
[2016-04-25 20:00] VITALS: BP 113/71
--- NOTE | 2016-04-26 03:58 | NUR ---
PATIENT IN DAYROOM WATCHING T.V. ORIENTED TO SELF, TIME, PLACE AND SITUATION. DENIES PAIN. WHEN PROMPTED, HE SAID HE WAS HAPPY ABOUT DISCHARGE TO HIS DAUGHTER, HOWEVER, HE SEEMED SLUGGISH AND TIRED. CONTINUE TO MONITOR.
[2016-04-26 08:16] VITALS: BP 176/79
--- NOTE | 2016-04-26 09:00 | PN ---
PATIENT:LEONARDA WEATHERS MEDICAL RECORD: [id number] LOCATION:[facility] ADMISSION DATE: 04/19/16 PROGRESS NOTE DATE OF SERVICE: 04/25/2016 SUBJECTIVE: No new complaint. OBJECTIVE: Arrangements have been made for the patient to travel to [place] to live with relatives. He has been stable over the last 48 hours. On exam, mood is euthymic. Affect bland. Speech is tangential. Content of thought is unchanged. Sensorium unchanged. ASSESSMENT: No change in diagnosis. PLAN: 1. Maintain all current medications. 2. Anticipate discharge tomorrow. TRANSINT:[id number] Voice Confirmation ID: [id number] DOCUMENT ID: [id number] ECTOR MCNAIR III, MD at 0900 CC: [id number] DICTATION DATE: 04/25/16 1205 REQUISITION APPROVER: 04/25/16 1737 ADM IN [id number] [place] [address]
--- NOTE | 2016-04-26 11:55 | NUR ---
PRESCRIPTIONS CALLED INTO THE PHARMACY OF PATIENT'S CHOICE.
--- NOTE | 2016-04-26 12:12 | NUR ---
(B)RECEIVED PATIENT SITTING IN A CHAIR AT THE NURSE'S STATION. ORIENTED X3. SOCIAL WITH PEERS. CALM AND COOPERTATIVE. EXCITED ABOUT DISCHARGE TODAY. (I)ADMINISTER MEDS AND MONITOR COMPLIANCE. DISCUSS DISCHARGE AND COMPLETE APPROPRIATE PAPERWORK. (R)MED COMPLIANT. PAPERWORK COMPLETED AND SIGNED BY PATIENT AND NURSE. CONTINUES TO BE CALM AND COOPERATIVE WITH NO C/O VOICED. (P)CONTINUE POC AND MAINTAIN FALL PRECAUTIONS.
--- NOTE | 2016-04-26 13:10 | NUR ---
DISCHARGED HOME ACCOMPANIED WITH DAUGHTER VIA PRIVATE VEHICLE. PLAN IS PATIENT WILL BE MOVING TO [place] WITH DAUGHTER. PERSONAL BELONGINGS RETURNED TO PATIENT. VERBAL AND WRITTEN DISCHARGE INSTRUCTIONS GIVEN TO PATIENT. CONDITION STABLE AT TIME OF DISCHARGE.
--- NOTE | 2016-04-30 08:56 | DS ---
PATIENT:LEONARDA WEATHERS :30 MEDICAL RECORD: [id number] DISCHARGE SUMMARY ADMISSION DATE: 04/19/16 DISCHARGE DATE: 04/26/16 DATE OF ADMISSION: 04/19/2016. DATE OF DISCHARGE: 04/26/2016. HISTORY OF PRESENT ILLNESS: [facility] admission for this 86-year-old white male. The patient had originally been admitted due to pneumonia. He began exhibiting behavioral problems including confusion and agitation and wandering behavior, wandering behavior during the hospitalization and was subsequently transferred to [facility], an acute care hospital. For further details, please see previously dictated history. COURSE IN THE HOSPITAL: The patient was seen in consultation by Dr. Cordoba. Dr. Cordoba noted the history of recent pneumonia which had resolved. Other ongoing illnesses included COPD, coronary artery disease, Parkinson disease, hypertension, chronic atrial fibrillation and hypothyroidism. From a medication standpoint, the patient was treated with Risperdal, dosage was stabilized at 2 mg at bedtime during the hospitalization and reduced to 1 mg at bedtime at the time of discharge. The patient was also prescribed Ativan 0.5 mg on a p.r.n. basis for anxiety. Nonpsychiatric medications included potassium supplements, MiraLax, lisinopril, Plavix, Norvasc, Coreg, Synthroid, Cytotec, Sinemet, Cordarone, and DuoNeb inhaler. The patient showed good resolution of his agitation during the course of the hospitalization. By the time of discharge, he was considered to be stable enough for transfer. The plan will be for him to travel to [place] to be with family and perhaps enter assisted living. FINAL DIAGNOSES: AXIS I: Alzheimer dementia -- improving. AXIS II: No diagnosis. AXIS III: Parkinson disease, chronic obstructive pulmonary disease, acute renal insufficiency -- resolved; coronary artery disease, hypothyroidism, hypertension, chronic atrial fibrillation. AXIS IV: Moderate. AXIS V: 40. PLAN: 1. The patient is discharged on current medications. 2. Diet and activities as tolerated. 3. Follow up through primary care in [place]. TRANSINT:[id number] Voice Confirmation ID: [id number] DOCUMENT ID: [id number] DISCHARGE SUMMARY REPORT [id number] SHAWNA WEATHERSALDO MCNAIR III, ECTOR Crum MD at 0856 CC: [id number] DICTATION DATE: 04/26/16 1146 FIELD AIDE: 04/27/16 0124 DIS IN 04/26/16 [facility] [address] [facility] [facility]
== END 2016-04-26 13:10 | disposition home or self-care (01) | DRG 57 ==
LOC: D.PSYCH 16:04
PROVIDERS: ADMIT Psychiatry & Neurology Psychiatry
DX: G30.9 Alzheimer's disease, unspecified (principal); F05 Delirium due to known physiological condition; F02.80 Dementia in other diseases classified elsewhere, unspecified severity, without behavioral disturbance, psychotic disturbance, mood disturbance, and anxiety; G20 Parkinson's disease; J44.9 Chronic obstructive pulmonary disease, unspecified; N28.9 Disorder of kidney and ureter, unspecified; I25.10 Atherosclerotic heart disease of native coronary artery without angina pectoris; I10 Essential (primary) hypertension; E03.9 Hypothyroidism, unspecified; I48.2 Chronic atrial fibrillation; K59.00 Constipation, unspecified